=== PATIENT | male | born 1955 ===

== ENCOUNTER 2017-10-01 00:13 | Emergency (ER) | payer OTHER ==
[2017-10-01 00:28] VITALS: RESP 18; TEMP 98.1
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
[2017-10-01 02:05] VITALS: BP 176/81; PULSE 76; O2SAT 95
== END 2017-10-01 02:05 | disposition home or self-care (01) ==
LOC: C.ER 00:13 → SUPCPDRO 00:13 → C.ER 02:05
DX: S00.83XA Contusion of other part of head, initial encounter (principal); S00.81XA Abrasion of other part of head, initial encounter; Y04.0XXA Assault by unarmed brawl or fight, initial encounter; Y92.410 Unspecified street and highway as the place of occurrence of the external cause; I10 Essential (primary) hypertension; Z23 Encounter for immunization